=== PATIENT | female | born 1945 | race Caucasian/White ===

== ENCOUNTER 2018-07-15 07:21 | Emergency (ER) | payer OTHER ==
--- NOTE | 2018-07-15 07:40 | ED Physician Documentation ---
General Adult - HISTORIAN Historian: patient - HPI Stated Complaint: R lower back/flank pain Chief Complaint: General Adult Onset: days ago Timing: still present Severity: moderate Further Comments: yes (Pt is a 72 yo female traveling from [facility] to [place] with c/o pain in the R sidie of her lower back and into her buttock. Pain is there continuously, but is worse with standing and walking. Pain has come on gradually over the past 5 days. Pt has had no acute injury, but says that she may have strained herself lifting her grandchildren.) - ROS CONST: no problems EYES/ENT: none CVS/RESP: none GI/: none MS/SKIN/LYMPH: back pain - PAST HX Past History: other (HLD) Surgeries/Procedures: other (appendectomy) Allergies/Adverse Reactions: Allergies Allergy/AdvReac Type Severity Reaction Status Date / Time No Known Allergies Allergy Verified 07/15/18 07:43 Home Medications: Ambulatory Orders Medication Instructions Recorded Simvastatin [Zocor] 1 tab PO DAILY 07/15/18 Valacyclovir HCl [Valtrex] 1 tab PO DAILY 07/15/18 - SOCIAL HX Smoking History: non-smoker - FAMILY HX Family History: No - REVIEWED ASSESSMENTS Nursing Assessment Reviewed: Yes Vitals Reviewed: Yes Progress - Progress Progress: Toradol 30 mg IM Diazepam 5 mg po no change CT abdomen and pelvis without contrast. History: Right flank pain. Axial images through the abdomen and pelvis with oral and without IV contrast is submitted along with sagittal and coronal reformatted images. The visualized lower lung roman are clear. No free intraperitoneal air is identified. A cyst in the periphery of the left lobe of the liver anteriorly measures 1.1 cm. A faint area of diminished attenuation in the periphery of the right lobe of liver measures 1.7 cm. Gallbladder is distended without stones. The spleen and pancreas appear normal in attenuation. The adrenal glands are normal configuration. The abdominal aorta is of normal caliber and associated with atherosclerotic plaque. No periaortic lymphadenopathy is identified. A 2.6 x 2.3 cm cyst is identified in the lower pole of the right kidney. No hydronephrosis or hydroureter is identified. The urinary bladder is partially distended without intrinsic filling defect. Uterus is mildly lobulated in configuration which may represent a myomatous uterus. No adnexal masses or free cul-de-sac fluid is identified. Contrast material throughout the colon is identified. Scattered diverticula in the sigmoid colon are noted. Surgical clips in the right side of pelvis are noted. The appendix is not well visualized. Small bowel is of normal caliber. No inflammatory changes in the mesentery or ascites is identified. In the coronal images there is right lateral subluxation of L4 and L5. The vertebral body heights are adequately maintained. Vacuum phenomena and endplate sclerosis and spurring is most marked at L4-5 and L5-S1 levels. Impression: Cyst in the anterior aspect of the left lobe of liver is noted. An area of diminished attenuation in the anterior aspect of the right lobe the liver could represent more complex cyst. Ultrasound or enhanced CT may be beneficial to further evaluate. Right renal cyst. No hydronephrosis or hydroureter is identified. Diverticulosis of the sigmoid colon. Myomatous uterus. Nonspecific bowel gas pattern. f/u pcp/ortho re: hepatic cysts and radiculopathy Rx [place] (5/325) 1-2 po q 4-6 h prn #20. General Adult Physical Exam - PHYSICAL EXAM GENERAL APPEARANCE: mild distress NECK: normal inspection, supple RESPIRATORY: no resp distress, chest non-tender, breath sounds normal CVS: reg rate & rhythm, heart sounds normal ABDOMEN: soft, no organomegaly, normal bowel sounds BACK: normal inspection, no CVA tenderness SKIN: warm/dry, normal color EXTREMITIES: normal range of motion, no evidence of injury, no edema, other (tenderness R lower back/hip) NEURO: oriented X3, motor nml, sensation nml Discharge Clincal Impression: R flank/back pain, hepatic cyst; renal cyst Radiculopathy Qualifiers: Spinal region: lumbar Qualified Code(s): M54.16 - Radiculopathy, lumbar region Condition: Stable Disposition: 01 HOME, SELF-CARE Decision to Admit: NO Decision Time: 10:28
[2018-07-15 07:43] VITALS: BP 151/76
[2018-07-15] MEDS ORDERED: KETOROLAC TROMETHAMINE 30 MG/1ML VIAL IM ONE (07:47)
[2018-07-15] MEDS ORDERED: DIAZEPAM 5 MG TABLET PO ONE (07:47)
--- NOTE | 2018-07-16 01:23 | Diagnostic Imaging Report ---
JOYCE HURST [facility] [address] [facility] [address] [place], [place]. [address] Report Submission Date: Jul 15, 2018 9:58:27 AM [employer]PER[employer] Patient Study Name: CARLI FARMER Date: Jul 15, 2018 9:24:31 AM [employer] SUPER[employer]OR Modality Type: CT\SR Gender: F Description: CT ABD PELVIS W/O CO : 44 Institution: [facility] Physician: JOYCE HURST Exam: CT abdomen and pelvis without contrast. History: Right flank pain. Axial images through the abdomen and pelvis with oral and without IV contrast is submitted along with sagittal and coronal reformatted images. The visualized lower lung roman are clear. No free intraperitoneal air is identified. A cyst in the periphery of the left lobe of the liver anteriorly measures 1.1 cm. A faint area of diminished attenuation in the periphery of the right lobe of liver measures 1.7 cm. Gallbladder is distended without stones. The spleen and pancreas appear normal in attenuation. The adrenal glands are normal configuration. The abdominal aorta is of normal caliber and associated with atherosclerotic plaque. No periaortic lymphadenopathy is identified. A 2.6 x 2.3 cm cyst is identified in the lower pole of the right kidney. No hydronephrosis or hydroureter is identified. The urinary bladder is partially distended without intrinsic filling defect. Uterus is mildly lobulated in configuration which may represent a myomatous uterus. No adnexal masses or free cul-de-sac fluid is identified. Contrast material throughout the colon is identified. Scattered diverticula in the sigmoid colon are noted. Surgical clips in the right side of pelvis are noted. The appendix is not well visualized. Small bowel is of normal caliber. No inflammatory changes in the mesentery or ascites is identified. In the coronal images there is right lateral subluxation of L4 and L5. The vertebral body heights are adequately maintained. Vacuum phenomena and endplate sclerosis and spurring is most marked at L4-5 and L5-S1 levels. Impression: Cyst in the anterior aspect of the left lobe of liver is noted. An area of diminished attenuation in the anterior aspect of the right lobe the liver could represent more complex cyst. Ultrasound or enhanced CT may be beneficial to further evaluate. Right renal cyst. No hydronephrosis or hydroureter is identified. Diverticulosis of the sigmoid colon. Myomatous uterus. Nonspecific bowel gas pattern. Electronically signed on Jul 15, 2018 9:58:27 AM SCHOOL SUPERVISOR by: Gianfranco CARRASCO
[2018-07-25 10:41] LABS: APPEARANCE,URINE CLEAR (CLEAR); COLOR,URINE YELLOW (YELLOW); OCCULT BLOOD,URINE TRACE-INTACT (NEGATIVE); PH URINE 5.5 (5.0 - 8.0); UROBILINOGEN URINE 0.2 Eu (0.2-1.0)
== END 2018-07-15 10:34 | disposition home or self-care (01) ==
LOC: ED 07:21
DX: M54.16 Radiculopathy, lumbar region (principal); M54.5 Low back pain; R10.31 Right lower quadrant pain; K76.89 Other specified diseases of liver; N28.1 Cyst of kidney, acquired
CPT/HCPCS: 74176; 81002; 96372; 99283; 99284; J1885